=== PATIENT | male | born 1970 | race Caucasian/White ===

== ENCOUNTER → 2016-08-06 | Outpatient (CLI) | payer OTHER ==
--- NOTE | 2016-08-06 16:34 | US ---
EXAMINATION TYPE: US abdomen complete DATE OF EXAM: 08/06/2016 4:23 PM COMPARISON: NONE CLINICAL HISTORY: R94.5 Abnormal results of liver function studies. EXAM MEASUREMENTS: Liver Length: 11.6 cm Gallbladder Wall: 0.2 cm CBD: 0.4 cm Spleen: 12.3 cm Right Kidney: 10.5 x 5.8 x 5.6 cm Left Kidney: 11.8 x 5.7 x 5.7 cm Pancreas: not visualized due to midline bowel gas Liver: wnl Gallbladder: No stones seen Evidence for sonographic Hayes's sign: No CBD: wnl Spleen: wnl Right Kidney: No hydronephrosis or masses seen Left Kidney: No hydronephrosis or masses seen Upper IVC: wnl Abd Aorta: wnl The pancreas is obscured. Liver is normal in size without evidence of biliary dilatation. The gallbladder is normal without cholelithiasis. The gallbladder wall measures 2 mm. The distal comm on bile duct measures 4 mm. The spleen is normal in size. Both kidneys are normal. Visualized portions of the aorta and IVC are normal. IMPRESSION: NORMAL ABDOMINAL ULTRASOUND.
== END | disposition home or self-care (01) ==
LOC: RADUSMAIN 16:01
PROVIDERS: ATTEND Family Medicine
DX: R94.5 Abnormal results of liver function studies (principal)
CPT/HCPCS: 76700

== ENCOUNTER 2016-09-16 08:02 | Day surgery (SDC) | payer OTHER ==
[2016-09-14 08:42] VITALS: BMI 29.7
[~2016-09-16 08:02] MED LIST: LACTATED RINGERS 1,000 ML IV SCH; LIDOCAINE 1% 20 ML VIAL (10MG/ML) FOR IV START INTRADERMA PRN
[2016-09-16 08:20] VITALS: TEMP 98.1
[2016-09-16] MEDS ORDERED: PROPOFOL 10 MG/ML 20 ML VIAL IV ONE (09:10)
[2016-09-16 09:35] VITALS: RESP 18
--- NOTE | 2016-09-16 09:35 | P.PCN ---
Date of Procedure: 09/16/16 Preoperative Diagnosis: Postoperative Diagnosis: Procedure(s) Performed: Procedure: Total colonoscopy. Preoperative diagnosis: Screening for neoplasia, patient has family history of colon cancer in his dad. Postoperative diagnosis: Exam within normal limits. Preparation: HalfLytely prep. Sedation: Was provided by anesthesia. Brief clinical history: The patient is a 46-year-old male who is referred for this evaluation for screening for neoplasia because of family history of colon cancer in his father who was diagnosed as a young age. The patient had a prior colonoscopy at age 30 and that was a normal exam. He has no abdominal complaints, bleeding or anemia. Procedure: With the patient on his left lateral decubitus position and after informed consent and adequate sedation, the perianal area was inspected and it did not show any fissures or fistulas. There were no masses felt on digital rectal examination. The Olympus CFQ 160L was then inserted in the rectum in the usual fashion and advanced to the cecum. The preparation was good. The mucosa appeared healthy. No polyps or tumors were seen or any obvious diverticular disease or other pathology. I retroflexed the endoscope in the rectum before the endoscope was withdrawn. The patient tolerated the procedure well. Plan: The patient was reassured. He will follow-up with you as planned and I recommended a repeat exam in 10 years. Implants: Indications for Procedure: Operative Findings: Description of Procedure:
[2016-09-16 10:09] VITALS: BP 139/94; PULSE 56
== END 2016-09-16 10:20 | disposition home or self-care (01) ==
LOC: ORWHC2ENDO 08:02
DX: Z12.11 Encounter for screening for malignant neoplasm of colon (principal); Z80.0 Family history of malignant neoplasm of digestive organs; E78.5 Hyperlipidemia, unspecified
CPT/HCPCS: J2704; G0105; 45378

== ENCOUNTER 2017-04-18 20:37 | Emergency (ER) | payer OTHER ==
[2017-04-18] MEDS ORDERED: SODIUM CHLORIDE 0.9% 1,000 ML IV STA (20:54)
[2017-04-18 21:02] LABS: Basophils # (A) 0.1 k/uL (0-0.2); Basophils % (A) 1 %; Eosinophils # (A) 0.5 k/uL (0-0.7); Eosinophils % (A) 6 %; HCT 44.9 % (39.0-53.0); HGB 15.5 gm/dL (13.0-17.5); Lymphocytes # (A) 1.4 k/uL (1.0-4.8); Lymphocytes % (A) 17 %; MCHC 34.5 g/dL (31.0-37.0); MCV 92.7 fL (80.0-100.0); Monocytes # (A) 0.4 k/uL (0-1.0); Monocytes % (A) 5 %; Neutrophils # (A) 5.7 k/uL (1.3-7.7); Neutrophils % (A) 70 %; Platelet Count 289 k/uL (150-450); RBC 4.84 m/uL (4.30-5.90); WBC 8.1 k/uL (3.8-10.6)
[2017-04-18 21:12] LABS: ALT 92 U/L (21-72); AST 42 U/L (17-59); Albumin 4.6 g/dL (3.5-5.0); Alkaline Phosphatase 90 U/L (38-126); Anion Gap 13 mmol/L; Blood Urea Nitrogen 13 mg/dL (9-20); Calcium 9.9 mg/dL (8.4-10.2); Carbon Dioxide 28 mmol/L (22-30); Chloride 99 mmol/L (98-107); Glucose 134 mg/dL (74-99); Lipase 33 U/L (23-300); Magnesium 1.9 mg/dL (1.6-2.3); Sodium 140 mmol/L (137-145); Total Bilirubin 0.5 mg/dL (0.2-1.3); Total Protein 8.3 g/dL (6.3-8.2)
--- NOTE | 2017-04-18 21:15 | XR ---
EXAMINATION TYPE: XR chest 2V DATE OF EXAM: 04/18/2017 COMPARISON: NONE HISTORY: Chest pain TECHNIQUE: Frontal and lateral views of the chest are obtained. FINDINGS: Heart and mediastinum are normal. Lungs are clear. Costophrenic angles are clear. There ar e chest leads. Bony thorax is intact. IMPRESSION: Normal chest
--- NOTE | 2017-04-18 21:17 | ED ---
General Adult HPI - General Chief complaint: Chest Pain Stated complaint: chest pain Time Seen by Provider: 04/18/17 20:54 Source: patient, RN notes reviewed, old records reviewed Mode of arrival: ambulatory Limitations: no limitations - History of Present Illness Initial comments: This is a 38-year-old male the ER for evasive chest pain. Patient states he has right-sided chest pain. Patient has history of high blood pressure, patient states that the pain is, been dull,, going started this morning and has been right-sided. No significant shortness of breath occasional cough or congestion no fevers. No travel history no sick contacts. Patient has no modifying factors for pain - Related Data Home Medications Medication Instructions Recorded Confirmed Aspirin [Adult Low Dose Aspirin EC] 81 mg PO DAILY PRN 04/18/17 04/18/17 Loratadine-Pseudoeph 10-240 mg 1 tab PO DAILY PRN 04/18/17 04/18/17 [Claritin-D 24 Hr] Previous Rx's Medication Instructions Recorded Azithromycin [Zithromax Z-pack] 0 mg PO DIRECTED #1 pack 04/18/17 Allergies Allergy/AdvReac Type Severity Reaction Status Date / Time atorvastatin [From Lipitor] AdvReac MUSCLE Verified 04/18/17 20:55 ACHES Review of Systems ROS Statement: Those systems with pertinent positive or pertinent negative responses have been documented in the HPI. ROS Other: All systems not noted in ROS Statement are negative. Past Medical History Past Medical History: Hyperlipidemia Additional Past Medical History / Comment(s): "borderline high blood pressure", deteriorating disk, elevated liver enzymes, History of Any Multi-Drug Resistant Organisms: None Reported Additional Past Surgical History / Comment(s): oral surgery Past Anesthesia/Blood Transfusion Reactions: No Reported Reaction Past Psychological History: No Psychological Hx Reported Smoking Status: Never smoker Past Alcohol Use History: None Reported Past Drug Use History: None Reported - Past Family History Mother Family Medical History: Cancer Father Family Medical History: Cancer General Exam Limitations: no limitations General appearance: alert, in no apparent distress Head exam: Present: atraumatic, normocephalic, normal inspection Eye exam: Present: normal appearance, PERRL, EOMI. Absent: scleral icterus, conjunctival injection, periorbital swelling ENT exam: Present: normal exam, mucous membranes moist Neck exam: Present: normal inspection. Absent: tenderness, meningismus, lymphadenopathy Respiratory exam: Present: normal lung sounds bilaterally. Absent: respiratory distress, wheezes, rales, rhonchi, stridor Cardiovascular Exam: Present: regular rate, normal rhythm, normal heart sounds. Absent: systolic murmur, diastolic murmur, rubs, gallop, clicks GI/Abdominal exam: Present: soft, normal bowel sounds. Absent: distended, tenderness, guarding, rebound, rigid Extremities exam: Present: normal inspection, full ROM, normal capillary refill. Absent: tenderness, pedal edema, joint swelling, calf tenderness Back exam: Present: normal inspection Neurological exam: Present: alert, oriented X3, CN II-XII intact Psychiatric exam: Present: normal affect, normal mood Skin exam: Present: warm, dry, intact, normal color. Absent: rash Course Vital Signs 04/18/17 04/18/17 04/18/17 20:45 20:53 20:58 Temperature 98.5 F Pulse Rate 102 H 97 Pulse Rate [ 98 Crusher Assembler ] Respiratory 20 16 16 Rate Blood Pressure 199/115 167/99 O2 Sat by Pulse 97 98 Oximetry 04/19/17 00:13 Temperature 98.0 F Pulse Rate 78 Pulse Rate [ Crusher Assembler ] Respiratory 18 Rate Blood Pressure 138/89 O2 Sat by Pulse Oximetry - Reevaluation(s) Reevaluation #1: Patient has significant improvement pain, no chest pain no diaphoresis here in the emergency room, EKG Findings - EKG Comments: EKG Findings:: EKG shows sinus rhythm rate of 97, [place] 178, QRS 82, QTc 424 Medical Decision Making - Medical Decision Making 46 male the ER for evaluation, patient's found to have positive pneumonia. Patient be treated appropriately for pneumonia and can be discharged home - Lab Data Result diagrams: 04/18/17 20:45 04/18/17 20:45 Lab Results 04/18/17 04/18/17 04/18/17 Range/Units 20:45 20:45 20:45 WBC 8.1 (3.8-10.6) k/uL RBC 4.84 (4.30-5.90) m/uL Hgb 15.5 (13.0-17.5) gm/dL Hct 44.9 (39.0-53.0) % MCV 92.7 (80.0-100.0) fL MCH 32.0 (25.0-35.0) pg MCHC 34.5 (31.0-37.0) g/dL RDW 12.0 (11.5-15.5) % Plt Count 289 (150-450) k/uL Neutrophils % 70 % Lymphocytes % 17 % Monocytes % 5 % Eosinophils % 6 % Basophils % 1 % Neutrophils # 5.7 (1.3-7.7) k/uL Lymphocytes # 1.4 (1.0-4.8) k/uL Monocytes # 0.4 (0-1.0) k/uL Eosinophils # 0.5 (0-0.7) k/uL Basophils # 0.1 (0-0.2) k/uL PT (9.0-12.0) sec INR (<1.2) APTT (22.0-30.0) sec D-Dimer (<0.60) mg/L FEU Sodium 140 (137-145) mmol/L Potassium 4.0 (3.5-5.1) mmol/L Chloride 99 (98-107) mmol/L Carbon Dioxide 28 (22-30) mmol/L Anion Gap 13 mmol/L BUN 13 (9-20) mg/dL Creatinine 1.13 (0.66-1.25) mg/dL Est GFR (MDRD) Af Amer >60 (>60 ml/min/1.73 sqM) Est GFR (MDRD) Non-Af >60 (>60 ml/min/1.73 sqM) Glucose 134 H (74-99) mg/dL Calcium 9.9 (8.4-10.2) mg/dL Magnesium 1.9 (1.6-2.3) mg/dL Total Bilirubin 0.5 (0.2-1.3) mg/dL AST 42 (17-59) U/L ALT 92 H (21-72) U/L Alkaline Phosphatase 90 (38-126) U/L Total Creatine Kinase 114 (55-170) U/L CK-MB (CK-2) 0.9 (0.0-2.4) ng/mL CK-MB (CK-2) Rel Index 0.8 Troponin I <0.012 (0.000-0.034) ng/mL NT-Pro-B Natriuret Pep pg/mL Total Protein 8.3 H (6.3-8.2) g/dL Albumin 4.6 (3.5-5.0) g/dL Lipase 33 (23-300) U/L 04/18/17 04/18/17 Range/Units 20:45 20:45 WBC (3.8-10.6) k/uL RBC (4.30-5.90) m/uL Hgb (13.0-17.5) gm/dL Hct (39.0-53.0) % MCV (80.0-100.0) fL MCH (25.0-35.0) pg MCHC (31.0-37.0) g/dL RDW (11.5-15.5) % Plt Count (150-450) k/uL Neutrophils % % Lymphocytes % % Monocytes % % Eosinophils % % Basophils % % Neutrophils # (1.3-7.7) k/uL Lymphocytes # (1.0-4.8) k/uL Monocytes # (0-1.0) k/uL Eosinophils # (0-0.7) k/uL Basophils # (0-0.2) k/uL PT 10.1 (9.0-12.0) sec INR 1.0 (<1.2) APTT 24.0 (22.0-30.0) sec D-Dimer 0.28 (<0.60) mg/L FEU Sodium (137-145) mmol/L Potassium (3.5-5.1) mmol/L Chloride (98-107) mmol/L Carbon Dioxide (22-30) mmol/L Anion Gap mmol/L BUN (9-20) mg/dL Creatinine (0.66-1.25) mg/dL Est GFR (MDRD) Af Amer (>60 ml/min/1.73 sqM) Est GFR (MDRD) Non-Af (>60 ml/min/1.73 sqM) Glucose (74-99) mg/dL Calcium (8.4-10.2) mg/dL Magnesium (1.6-2.3) mg/dL Total Bilirubin (0.2-1.3) mg/dL AST (17-59) U/L ALT (21-72) U/L Alkaline Phosphatase (38-126) U/L Total Creatine Kinase (55-170) U/L CK-MB (CK-2) (0.0-2.4) ng/mL CK-MB (CK-2) Rel Index Troponin I (0.000-0.034) ng/mL NT-Pro-B Natriuret Pep 19 pg/mL Total Protein (6.3-8.2) g/dL Albumin (3.5-5.0) g/dL Lipase (23-300) U/L - Radiology Data Radiology results: report reviewed (Chest x-ray and CTA chest are negative for acute disease as far as PE, positive pneumonia), image reviewed Disposition Clinical Impression: Atypical chest pain, Hypertension, Community acquired pneumonia Disposition: HOME SELF-CARE Condition: Good Instructions: Chest Pain (ED), Community Acquired Pneumonia (ED), Hypertension (ED) Prescriptions: Azithromycin [Zithromax Z-pack] 0 mg PO DIRECTED #1 pack Referrals: Niyah Sarabia MD [Primary Care Provider] - 1-2 days
[2017-04-18] MEDS ORDERED: RX INFO: IV CONTRAST WAS GIVEN 1 EACH MISC MISCELLANE PRN (21:18)
[2017-04-18 21:21] LABS: Creatine Kinase 114 U/L (55-170)
[2017-04-18 21:26] LABS: D-Dimer 0.28 mg/L FEU (<0.60); Prothrombin Time 10.1 sec (9.0-12.0)
[2017-04-18 21:34] LABS: Creatine Kinase MB 0.9 ng/mL (0.0-2.4); Troponin I <0.012 ng/mL (0.000-0.034)
--- NOTE | 2017-04-18 22:28 | CT ---
EXAMINATION TYPE: CT angio chest DATE OF EXAM: 04/18/2017 10:21 PM COMPARISON: NONE HISTORY: Right sided chest pain today. CT DLP: 476.60 mGycm Automated exposure control for dose reduction was used. CONTRAST: CTA scan of the thorax is performed with IV Contrast, patient injected with 69 mL of Omnipaque 350, p ulmonary embolism protocol. There are 3-D post processed images.. FINDINGS: There is a minimal linear infiltrate in the anterior aspect of the superior segment of the right lowe r lobe. The other lung fernandez are clear. There is no evidence of a pulmonary mass. Heart size is norm al. There is no evidence of aortic aneurysm or dissection. I see no filling defects in the pulmonary arteries. There are no hilar masses. There is no mediastina l adenopathy. The bony thorax is intact. IMPRESSION: MINIMAL RIGHT LOWER LOBE PULMONARY INFILTRATE. NO EVIDENCE OF PULMONARY EMBOLISM.
[2017-04-18] MEDS ORDERED: AZITHROMYCIN 500 MG TAB PO STA (23:10)
[2017-04-18] MEDS ORDERED: LABETALOL 5 MG/ML VIAL MDV IVP STA (23:49)
[2017-04-19 00:14] VITALS: BP 138/89; PULSE 78; RESP 18; TEMP 98
== END 2017-04-19 00:14 | disposition home or self-care (01) ==
LOC: EC 20:37
DX: J18.9 Pneumonia, unspecified organism (principal); I10 Essential (primary) hypertension; Z88.8 Allergy status to other drugs, medicaments and biological substances
CPT/HCPCS: 99285; 96374; 96361; 36415; 93005; 85379; 83880; 80053; 82550; 82553; 83690; 83735; 84484; 85025; 85610; 85730; 71046; 71275; Q9967

== ENCOUNTER → 2024-03-12 | Outpatient (CLI) | payer OTHER ==
--- NOTE | 2024-03-12 12:21 | XR ---
EXAMINATION TYPE: XR cervical spine limited DATE OF EXAM: 03/12/2024 11:46 AM COMPARISON: None CLINICAL INDICATION: Male, 53 years old with history of M54.2 cervicalgia; H TECHNIQUE: XR cervical spine limited, (1-2) views of the cervical spine FINDINGS: Or The osseous structures show normal alignment without evidence of an acute fracture. There are osteoph ytes noted throughout the cervical spine on the anterior and lateral aspects of the vertebral bodies. The intervertebral disk spaces are narrowed at multiple levels Pedicles are intact. Soft tissues ar e within normal limits. The odontoid appears intact. IMPRESSION: 1. No fracture or dislocation. 2. Mild degenerative disc disease changes of the cervical spine. [facility], , 03/12/2024 12:19 PM
--- NOTE | 2024-03-12 12:23 | XR ---
EXAMINATION TYPE: XR thoracic spine complete DATE OF EXAM: 03/12/2024 11:46 AM COMPARISON: None CLINICAL INDICATION: Male, 53 years old with history of M54.6 thoracic spine pain; H TECHNIQUE: XR thoracic spine complete views of the spine in Frontal and lateral projections. FINDINGS: No evidence of acute fracture. There is scattered multilevel disk space narrowing without loss of ve rtebral body height. There is normal alignment of the thoracic vertebral bodies. Scattered osteophyte formation along the anterior and lateral aspects of the vertebral bodies. Neural foramen are patent given limitations of this exam. Spinal canal appears patent. IMPRESSION: 1. No acute osseous pathology. 2. [id number] multilevel degeneration changes of the spine. [facility], , 03/12/2024 12:20 PM
== END | disposition home or self-care (01) ==
LOC: RADXRMAIN 11:18
PROVIDERS: ATTEND Family Medicine
DX: M50.30 Other cervical disc degeneration, unspecified cervical region (principal); M47.816 Spondylosis without myelopathy or radiculopathy, lumbar region
CPT/HCPCS: 72040; 72072

== ENCOUNTER 2024-07-28 18:04 | Observation (INO) | payer OTHER ==
--- NOTE | 2024-07-28 18:29 | ED ---
General Adult HPI - General Chief complaint: Chest Pain Stated complaint: Chest pain Time Seen by Provider: 07/28/24 18:13 Source: patient, RN notes reviewed Mode of arrival: ambulatory Limitations: no limitations - History of Present Illness Initial comments: Patient is a 54-year-old male present to the emergency department with concerns with chest discomfort. Onset of symptoms was prior to arrival while doing yard work. Discomfort is rated 3-4/10. Discomfort was a little bit worse earlier. No associated dyspnea, nausea, or diaphoresis. No history of similar symptoms previously. No known history of previous cardiac disease. - Related Data Home Medications Medication Instructions Recorded Confirmed Loratadine [Claritin] 10 mg PO DAILY PRN 07/28/24 07/28/24 Multivitamins, Thera [Multivitamin 1 tab PO HS 07/28/24 07/28/24 (formulary)] Rosuvastatin Calcium [Crestor] 5 mg PO HS 07/28/24 07/28/24 amLODIPine [Norvasc] 5 mg PO HS 07/28/24 07/28/24 Allergies Allergy/AdvReac Type Severity Reaction Status Date / Time atorvastatin [From Lipitor] AdvReac MUSCLE Verified 07/28/24 20:03 ACHES Review of Systems ROS Statement: Those systems with pertinent positive or pertinent negative responses have been documented in the HPI. ROS Other: All systems not noted in ROS Statement are negative. Constitutional: Denies: fever Eyes: Denies: eye pain ENT: Denies: ear pain Respiratory: Denies: cough, dyspnea Cardiovascular: Reports: as per HPI, chest pain Endocrine: Denies: fatigue Gastrointestinal: Denies: abdominal pain Past Medical History Past Medical History: Hyperlipidemia Additional Past Medical History / Comment(s): "borderline high blood pressure", deteriorating disk, elevated liver enzymes, History of Any Multi-Drug Resistant Organisms: None Reported Additional Past Surgical History / Comment(s): oral surgery Past Anesthesia/Blood Transfusion Reactions: No Reported Reaction Past Psychological History: No Psychological Hx Reported Past Alcohol Use History: None Reported Past Drug Use History: None Reported - Past Family History Mother Family Medical History: Cancer Father Family Medical History: Cancer General Exam Limitations: no limitations General appearance: alert, in no apparent distress Head exam: Present: normocephalic Eye exam: Present: normal appearance Neck exam: Present: normal inspection Respiratory exam: Present: normal lung sounds bilaterally. Absent: chest wall tenderness Cardiovascular Exam: Present: regular rate, normal rhythm, normal heart sounds Expanded Peripheral pulses: 2+: Radial (R), Radial (L), Posterior Tibialis (R), Posterior Tibialis (L) GI/Abdominal exam: Present: soft. Absent: tenderness Extremities exam: Present: normal inspection. Absent: pedal edema, calf tenderness Neurological exam: Present: alert Psychiatric exam: Present: normal affect, normal mood Skin exam: Present: normal color Course Vital Signs 07/28/24 07/28/24 18:13 18:45 Temperature 98.1 F Pulse Rate 108 H 97 Respiratory 18 18 Rate Blood Pressure 150/101 157/95 O2 Sat by Pulse 98 99 Oximetry EKG Findings - EKG Results: EKG: interpreted by EDD (First-degree AV block with IA of 205.), sinus rhythm, normal axis, normal QRS, normal ST/T EKG shows: tachycardia Medical Decision Making - Medical Decision Making Was pt. sent in by a medical professional or institution (, PA, [employer]AT CANV[employer] INSTALLER, urgent care, hospital, or alf...) When possible be specific @ -No Did you speak to anyone other than the patient for history (EMS, parent, family, police, friend...)? What history was obtained from this source @ -No Did you review nursing and triage notes (agree or disagree)? Why? @ -I reviewed and agree with nursing and triage notes Were old charts reviewed (outside hosp., previous admission, EMS record, old EKG, old radiological studies, urgent care reports/EKG's, alf records)? Report findings @ -No old charts were reviewed Differential Diagnosis (chest pain, altered mental status, abdominal pain women, abdominal pain men, vaginal bleeding, weakness, fever, dyspnea, syncope, headache, dizziness, GI bleed, back pain, seizure, CVA, palpatations, mental health, musculoskeletal)? @ -Differential Chest Pain: Stable Angina, Unstable Angina, STEMI, NSTEMI Aortic Dissection, Pneumothorax, Musculoskeletal, Esophageal Spasm GERD, Cholecystitis, Pancreatitis, Zoster, this is not meant to be an all-inclusive list. EKG interpreted by me (3pts min.). @ -As above X-rays interpreted by me (1pt min.). @ -Chest x-ray shows no acute process CT interpreted by me (1pt min.). @ -None done U/S interpreted by me (1pt. min.). @ -None done What testing was considered but not performed or refused? (CT, X-rays, U/S, labs)? Why? @ -None What meds were considered but not given or refused? Why? @ -None Did you discuss the management of the patient with other professionals (professionals i.e. DrDerrick, PA, [employer]AT CANV[employer] INSTALLER, lab, RT, psych nurse, social worker assistant, chlorination operator, teacher, lead security officer, manager rn case)? Give summary @ -[facility] Dr. Quintana will admit covering Dr. Little Was smoking cessation discussed for >3mins.? @ -No Was critical care preformed (if so, how long)? @ -No Were there social determinants of health that impacted care today? How? (Homelessness, low income, unemployed, alcoholism, drug addiction, transport ation, low edu. Level, literacy, decrease access to med. care, assisted, rehab)? @ -No Was there de-escalation of care discussed even if they declined (Discuss DNR or withdrawal of care, Hospice)? DNR status @ -No What co-morbidities impacted this encounter? (DM, HTN, Smoking, COPD, CAD, Cancer, CVA, ARF, Chemo, Hep., AIDS, mental health diagnosis, sleep apnea, morbid obesity)? @ -Hypertension, hypercholesterolemia Was patient admitted / discharged? Hospital course, mention meds given and route, prescriptions, significant lab abnormalities, going to OR and other pertinent info. @ -Patient presents with chest discomfort following exertion doing yard work. Initial evaluation unremarkable. On reevaluation symptoms are improving however not resolved. Patient is updated on results and plan. Patient will be admitted with cardiac consult. Admission orders written. Undiagnosed new problem with uncertain prognosis? @ -No Drug Therapy requiring intensive monitoring for toxicity (Heparin, Nitro, Insulin, Cardizem)? @ -No Were any procedures done? @ -No Diagnosis/symptom? @ -Chest pain Acute, or Chronic, or Acute on Chronic? @ -Acute Uncomplicated (without systemic symptoms) or Complicated (systemic symptoms)? @ -Default Side effects of treatment? @ -No Exacerbation, Progression, or Severe Exacerbation? @ -No Poses a threat to life or bodily function? How? (Chest pain, [place], [place], pneumonia, PE, COPD, DKA, ARF, appy, cholecystitis, CVA, Diverticulitis, Homicidal, Suicidal, threat to staff... and all critical care pts) @ -Threat to cardiac function - Lab Data Result diagrams: 07/28/24 18:35 07/28/24 18:35 Lab Results 07/28/24 07/28/24 07/28/24 Range/Units 18:35 18:35 18:35 WBC 6.34 (4.50-10.00) 10*3/uL RBC 4.41 (4.40-5.60) 10*6/uL Hgb 14.9 (13.0-17.0) g/dL Hct 40.2 (39.6-50.0) % MCV 91.2 (80.0-97.0) fL MCH 33.8 H (27.0-32.0) pg MCHC 37.1 H (32.0-37.0) g/dL Plt Count 291 (140-440) 10*3/uL MPV 9.8 (9.5-12.2) fL Immature Gran % (Auto) 0.3 % Neutrophils % 67.7 % Lymphocytes % 21.9 % Monocytes % 7.1 % Eosinophils % 2.2 % Basophils % 0.8 % Immature Gran # 0.02 (0.00-0.04) 10*3/uL Neutrophils # 4.29 (1.80-7.70) 10*3/uL Lymphocytes # 1.39 (0.90-5.00) 10*3/uL Monocytes # 0.45 (0.20-1.00) 10*3/uL Eosinophils # 0.14 (0.04-0.35) 10*3/uL Basophils # 0.05 (0.00-0.10) 10*3/uL PT 11.1 (10.0-12.5) sec INR 1.0 (<1.2) APTT 24.3 (22.0-30.0) sec D-Dimer <0.17 (<0.60) mg/L FEU Sodium 137 (137-145) mmol/L Potassium 3.9 (3.5-5.1) mmol/L Chloride 100 (98-107) mmol/L Carbon Dioxide 26 (22-30) mmol/L Anion Gap 11 mmol/L BUN 15 (9-20) mg/dL Creatinine 1.21 (0.66-1.25) mg/dL Est GFR (CKD-EPI)AfAm 77 (>60 ml/min/1.73 sqM) Est GFR (CKD-EPI)NonAf 67 (>60 ml/min/1.73 sqM) Glucose 122 H (74-99) mg/dL Calcium 9.8 (8.4-10.2) mg/dL Magnesium 2.1 (1.6-2.3) mg/dL Total Bilirubin 0.6 (0.2-1.3) mg/dL AST 34 (17-59) U/L ALT 40 (4-49) U/L Alkaline Phosphatase 69 (38-126) U/L Troponin I (0.000-0.034) ng/mL Total Protein 7.8 (6.3-8.2) g/dL Albumin 4.7 (3.5-5.0) g/dL / Range/Units 18:35 WBC (4.50-10.00) 10*3/uL RBC (4.40-5.60) 10*6/uL Hgb (13.0-17.0) g/dL Hct (39.6-50.0) % MCV (80.0-97.0) fL MCH (27.0-32.0) pg MCHC (32.0-37.0) g/dL Plt Count (140-440) 10*3/uL MPV (9.5-12.2) fL Immature Gran % (Auto) % Neutrophils % % Lymphocytes % % Monocytes % % Eosinophils % % Basophils % % Immature Gran # (0.00-0.04) 10*3/uL Neutrophils # (1.80-7.70) 10*3/uL Lymphocytes # (0.90-5.00) 10*3/uL Monocytes # (0.20-1.00) 10*3/uL Eosinophils # (0.04-0.35) 10*3/uL Basophils # (0.00-0.10) 10*3/uL PT (10.0-12.5) sec INR (<1.2) APTT (22.0-30.0) sec D-Dimer (<0.60) mg/L FEU Sodium (137-145) mmol/L Potassium (3.5-5.1) mmol/L Chloride (98-107) mmol/L Carbon Dioxide (22-30) mmol/L Anion Gap mmol/L BUN (9-20) mg/dL Creatinine (0.66-1.25) mg/dL Est GFR (CKD-EPI)AfAm (>60 ml/min/1.73 sqM) Est GFR (CKD-EPI)NonAf (>60 ml/min/1.73 sqM) Glucose (74-99) mg/dL Calcium (8.4-10.2) mg/dL Magnesium (1.6-2.3) mg/dL Total Bilirubin (0.2-1.3) mg/dL AST (17-59) U/L ALT (4-49) U/L Alkaline Phosphatase (38-126) U/L Troponin I <0.012 (0.000-0.034) ng/mL Total Protein (6.3-8.2) g/dL Albumin (3.5-5.0) g/dL Disposition Clinical Impression: Chest pain Disposition: ADMITTED IP TO THIS HOSP Is patient prescribed a controlled substance at d/c from ED?: No Referrals: Niyah Sarabia MD [Primary Care Provider] - 1-2 days Time of Disposition: 20:09
[2024-07-28] MEDS: ASPIRIN 81 MG PO STA (18:43)
[2024-07-28] MEDS: NITROGLYCERIN OINT 1 INCH/GM PACKET TOPICAL STA (18:44)
[2024-07-28 18:46] LABS: Basophils # (A) 0.05 10*3/uL (0.00-0.10); Basophils % (A) 0.8 %; Eosinophils # (A) 0.14 10*3/uL (0.04-0.35); Eosinophils % (A) 2.2 %; HCT 40.2 % (39.6-50.0); HGB 14.9 g/dL (13.0-17.0); Lymphocytes # (A) 1.39 10*3/uL (0.90-5.00); Lymphocytes % (A) 21.9 %; MCH 33.8 pg (27.0-32.0); MCHC 37.1 g/dL (32.0-37.0); MCV 91.2 fL (80.0-97.0); Mean Platelet Volume 9.8 fL (9.5-12.2); Monocytes # (A) 0.45 10*3/uL (0.20-1.00); Monocytes % (A) 7.1 %; Neutrophils # (A) 4.29 10*3/uL (1.80-7.70); Neutrophils % (A) 67.7 %; Platelet Count 291 10*3/uL (140-440); RBC 4.41 10*6/uL (4.40-5.60); RDW 11.9 % (11.5-14.5); WBC 6.34 10*3/uL (4.50-10.00)
[2024-07-28 18:54] LABS: ALT 40 U/L (4-49); AST 34 U/L (17-59); African American GFR (CKD) 77 (>60 ml/min/1.73 sqM); Albumin 4.7 g/dL (3.5-5.0); Alkaline Phosphatase 69 U/L (38-126); Anion Gap 11 mmol/L; Blood Urea Nitrogen 15 mg/dL (9-20); Calcium 9.8 mg/dL (8.4-10.2); Carbon Dioxide 26 mmol/L (22-30); Chloride 100 mmol/L (98-107); Glucose 122 mg/dL (74-99); Magnesium 2.1 mg/dL (1.6-2.3); Non-African American GFR(CKD) 67 (>60 ml/min/1.73 sqM); Potassium 3.9 mmol/L (3.5-5.1); Sodium 137 mmol/L (137-145); Total Bilirubin 0.6 mg/dL (0.2-1.3); Total Protein 7.8 g/dL (6.3-8.2)
[2024-07-28 19:05] LABS: Partial Thromboplastin Time 24.3 sec (22.0-30.0); Prothrombin Time 11.1 sec (10.0-12.5)
--- NOTE | 2024-07-28 19:11 | XR ---
EXAMINATION TYPE: XR chest 2V DATE OF EXAM: 07/28/2024 6:41 PM COMPARISON: Chest radiographs from 04/18/2017. CLINICAL INDICATION: Male, 54 years old with history of Chest Pain; TECHNIQUE: XR chest 2V Frontal and lateral views of the chest. FINDINGS: Lungs/Pleura: There is no evidence of pleural effusion, focal consolidation, or pneumothorax. Pulmonary vascularity: Unremarkable. Heart/mediastinum: Cardiomediastinal silhouette is unremarkable. Musculoskeletal: No acute osseous pathology. IMPRESSION: No acute cardiopulmonary disease/process. [facility], , 07/28/2024 7:08 PM
[2024-07-28] MEDS ORDERED: NITROGLYCERIN SL TABS 0.4 MG TAB SUBLINGUAL PRN (20:09)
[2024-07-28] MEDS ORDERED: LORATADINE 10 MG TAB PO PRN (20:10)
[2024-07-28] MEDS: MULTIVITAMINS, THERA 1 EACH TAB PO SCH (20:54)
[2024-07-28] MEDS: amLODIPine 5 MG TAB PO SCH (20:55)
[2024-07-28] MEDS: ROSUVASTATIN CALCIUM 5 MG PO SCH (20:56)
[2024-07-28] MEDS: NITROGLYCERIN OINT 1 INCH/GM PACKET TOPICAL SCH (23:25)
[2024-07-29] MEDS: ASPIRIN 325 MG TAB PO SCH (08:27)
--- NOTE | 2024-07-29 11:24 | P.HPIM ---
History of Present Illness This is a pleasant 54 years old male with past medical history of hypertension and hyperlipidemia presents because of chest pain of 1 day duration started yesterday about 4-5/10 in severity currently completely resolved as per patient has 0/10. It was in the middle nonradiating with no known precipitating or relieving factors felt like pressure. Patient denies dyspnea or coughing. No specific GI/ symptom. No neurological symptoms. He denies smoking alcohol or illicit drugs. Patient hemodynamic stable afebrile Unremarkable labs CBC, BMP LFT. Troponin x 3 are negative less than 0.012. D-dimer negative less than 0.17. Chest x-ray showing no acute cardiopulmonary process. EKG showing sinus tachycardia at [address]-T changes Review of Systems Review of systems CONSTITUTIONAL: No fever, no malaise, no fatigue. HEENT: No recent visual problems or hearing problems. Denied any sore throat. CARDIOVASCULAR: No orthopnea, PND, no palpitations, no syncope. PULMONARY: No shortness of breath, no cough, no hemoptysis. GASTROINTESTINAL: No diarrhea, no nausea, no vomiting, no abdominal pain. Normoactive bowel sounds. NEUROLOGICAL: No headaches, no weakness, no numbness. HEMATOLOGICAL: Denies any bleeding or petechiae. GENITOURINARY: Denies any burning micturition, frequency, or urgency. MUSCULOSKELETAL/RHEUMATOLOGICAL: Denies any joint pain, swelling, or any muscle pain. ENDOCRINE: Denies any polyuria or polydipsia. Past Medical History Past Medical History: Hyperlipidemia Additional Past Medical History / Comment(s): "borderline high blood pressure", deteriorating disk, elevated liver enzymes, History of Any Multi-Drug Resistant Organisms: None Reported Additional Past Surgical History / Comment(s): oral surgery Past Anesthesia/Blood Transfusion Reactions: No Reported Reaction Past Psychological History: No Psychological Hx Reported Past Alcohol Use History: None Reported Past Drug Use History: None Reported - Past Family History Mother Family Medical History: Cancer Father Family Medical History: Cancer Medications and Allergies Home Medications Medication Instructions Recorded Confirmed Type Loratadine [Claritin] 10 mg PO DAILY PRN 07/28/24 07/28/24 History Multivitamins, Thera [Multivitamin 1 tab PO HS 07/28/24 07/28/24 History (formulary)] Rosuvastatin Calcium [Crestor] 5 mg PO HS 07/28/24 07/28/24 History amLODIPine [Norvasc] 5 mg PO HS 07/28/24 07/28/24 History Allergies Allergy/AdvReac Type Severity Reaction Status Date / Time atorvastatin [From Lipitor] AdvReac MUSCLE Verified 07/28/24 20:03 ACHES Physical Exam Vitals: Vital Signs Temp Pulse Resp BP Pulse Ox 07/29/24 10:52 75 16 139/95 99 07/29/24 08:30 98 F 75 16 150/95 99 07/29/24 06:25 63 18 130/86 98 07/29/24 01:54 97.8 F 76 18 113/76 100 07/28/24 20:56 92 18 130/96 98 07/28/24 18:45 97 18 157/95 99 07/28/24 18:13 98.1 F 108 H 18 150/101 98 Intake and Output 07/28/24 07/29/24 07/29/24 22:59 06:59 14:59 Other: Weight 97.522 kg GENERAL: The patient is alert and oriented x3, not in any acute distress. Well developed, well nourished. HEENT: Pupils are round and equally reacting to light. EOMI. No scleral icterus. No conjunctival pallor. Normocephalic, atraumatic. No pharyngeal erythema. No thyromegaly. CARDIOVASCULAR: S1 and S2 present. No murmurs, rubs, or gallops. PULMONARY: Chest is clear to auscultation, no wheezing , no crackles. ABDOMEN: Soft, nontender, nondistended, normoactive bowel sounds. No palpable organomegaly. MUSCULOSKELETAL: No joint swelling or deformity. EXTREMITIES: No cyanosis, clubbing, or pedal edema. NEUROLOGICAL: Gross neurological examination did not reveal any focal deficits. SKIN: No rashes. no petechiae. Results CBC & Chem 7: 07/28/24 18:35 07/28/24 18:35 Labs: Abnormal Lab Results - Last 24 Hours (Table) 07/28/24 07/28/24 Range/Units 18:35 18:35 MCH 33.8 H (27.0-32.0) pg MCHC 37.1 H (32.0-37.0) g/dL Glucose 122 H (74-99) mg/dL Assessment and Plan Assessment: Chest pain could be musculoskeletal, completely resolved. Rule out cardiac causes. D-dimer negative less than 0.017. Hypertension Hyperlipidemia Plan: Cardiology consult Continue with aspirin Further recommendation based on the clinical course GI and DVT prophylaxis
[2024-07-29 15:30] LABS: Chol/HDL Ratio 4.54 Ratio; LDL Cholesterol,Calculated 100.7 mg/dL (0.0-131.0)
--- NOTE | 2024-07-29 16:59 | P.CRDCN ---
History of Present Illness Consult date: 07/29/24 History of present illness: HISTORY OF PRESENTING ILLNESS: Patient is a 54-year-old male with past medical history of hypertension and dyslipidemia presented to the hospital because of substernal chest pressure that started a day prior coming to the hospital. This pain is nonradiating, no associated lightheadedness nausea vomiting diarrhea. No associated shortness of breath or palpitations. No associated syncopal episode. Chest pain was on and off lasted for few minutes and then resolved. No particular relationship with activity or rest or changing in position. Admission Vitals: 151/97 Admission Labs: Hb 14.9 BUN 15 creatinine 1.2, troponins were negative, TG 245, LDL 100, Admission EKG: Normal sinus rhythm with no significant ST-T wave changes concerning for ischemia Imaging: Chest x-ray did not show any acute cardiopulmonary process REVIEW OF SYSTEMS: 14 point review of system is negative except what is mentioned above in HPI. PHYSICAL EXAMINATION: Neck: Brisk carotid upstroke, no jugular venous distention. Lungs: Clear to auscultation. Heart: Regular rate and rhythm, S1-S2, , no murmur or rub. Abdomen: Soft nontender, positive bowel sounds. Extremities: No edema, intact distal pulses. Neuro: Alert, oritented, no focal deficits. Detailed neuro exam was not performed. ASSESSMENT: # Atypical chest pain, rule out of ACS # Essential hypertension # Dyslipidemia PLAN: Obtain echocardiogram Obtain treadmill echo stress test Obtain TSH, NT-proBNP A1c and ESR and CRP levels He is on amlodipine 5 mg, rosuvastatin 5 mg daily, will continue Gaudencio Stock MD, FACC, RPVI Thank you for allowing [facility] to participate in this patient's care. Feel free to reach out in case of any followup questions. Past Medical History Past Medical History: Hyperlipidemia Additional Past Medical History / Comment(s): "borderline high blood pressure", deteriorating disk, elevated liver enzymes, History of Any Multi-Drug Resistant Organisms: None Reported Additional Past Surgical History / Comment(s): oral surgery Past Anesthesia/Blood Transfusion Reactions: No Reported Reaction Past Psychological History: No Psychological Hx Reported Past Alcohol Use History: None Reported Past Drug Use History: None Reported - Past Family History Mother Family Medical History: Cancer Father Family Medical History: Cancer Medications and Allergies Home Medications Medication Instructions Recorded Confirmed Type Loratadine [Claritin] 10 mg PO DAILY PRN 07/28/24 07/28/24 History Multivitamins, Thera [Multivitamin 1 tab PO HS 07/28/24 07/28/24 History (formulary)] Rosuvastatin Calcium [Crestor] 5 mg PO HS 07/28/24 07/28/24 History amLODIPine [Norvasc] 5 mg PO HS 07/28/24 07/28/24 History Allergies Allergy/AdvReac Type Severity Reaction Status Date / Time atorvastatin [From Lipitor] AdvReac MUSCLE Verified 07/28/24 20:03 ACHES Physical Exam Vitals: Vital Signs Temp Pulse Resp BP Pulse Ox 07/29/24 15:09 83 18 151/97 97 07/29/24 10:52 75 16 139/95 99 07/29/24 08:30 98 F 75 16 150/95 99 07/29/24 06:25 63 18 130/86 98 07/29/24 01:54 97.8 F 76 18 113/76 100 07/28/24 20:56 92 18 130/96 98 07/28/24 18:45 97 18 157/95 99 07/28/24 18:13 98.1 F 108 H 18 150/101 98 Results 07/28/24 18:35 07/28/24 18:35 Cardiac Enzymes 07/28/24 07/28/24 07/28/24 Range/Units 18:35 18:35 21:49 AST 34 (17-59) U/L Troponin I <0.012 <0.012 (0.000-0.034) ng/mL 07/29/24 Range/Units 01:00 AST (17-59) U/L Troponin I <0.012 (0.000-0.034) ng/mL Coagulation 07/28/24 Range/Units 18:35 PT 11.1 (10.0-12.5) sec APTT 24.3 (22.0-30.0) sec Lipids 07/28/24 Range/Units 18:35 Triglycerides 245.00 H (0.00-149.00) mg/dL Cholesterol 192.00 (0.00-200.00) mg/dL HDL Cholesterol 42.30 (40.00-60.00) mg/dL Cholesterol/HDL Ratio 4.54 Ratio CBC 07/28/24 Range/Units 18:35 WBC 6.34 (4.50-10.00) 10*3/uL RBC 4.41 (4.40-5.60) 10*6/uL Hgb 14.9 (13.0-17.0) g/dL Hct 40.2 (39.6-50.0) % Plt Count 291 (140-440) 10*3/uL Comprehensive Metabolic Panel 07/28/24 Range/Units 18:35 Sodium 137 (137-145) mmol/L Potassium 3.9 (3.5-5.1) mmol/L Chloride 100 (98-107) mmol/L Carbon Dioxide 26 (22-30) mmol/L BUN 15 (9-20) mg/dL Creatinine 1.21 (0.66-1.25) mg/dL Glucose 122 H (74-99) mg/dL Calcium 9.8 (8.4-10.2) mg/dL AST 34 (17-59) U/L ALT 40 (4-49) U/L Alkaline Phosphatase 69 (38-126) U/L Total Protein 7.8 (6.3-8.2) g/dL Albumin 4.7 (3.5-5.0) g/dL Current Medications Generic Name Dose Route Start Last Admin Trade Name Freq PRN Reason Stop Dose Admin Amlodipine Besylate 5 mg 07/28/24 21:00 07/28/24 20:55 Amlodipine 5 Mg Tab PO 5 mg HS TRISHA Administration Aspirin 325 mg 07/29/24 09:00 07/29/24 08:27 Aspirin 325 Mg Tab PO 325 mg DAILY TRISHA Administration Famotidine 20 mg 07/29/24 21:00 Famotidine 20 Mg/2 Ml Vial IV Q12HR TRISHA Heparin Sodium (Porcine) 5,000 unit 07/29/24 21:00 Heparin Sodium,Porcine 5,000 Unit/Ml 1 Ml Vial SQ Q12HR TRISHA Loratadine 10 mg 07/28/24 20:10 Loratadine 10 Mg Tab PO DAILY PRN Allergy Symptoms Multivitamins 1 each 07/28/24 21:00 07/28/24 20:54 Multivitamins, Thera 1 Each Tab PO 1 each HS TRISHA Administration Nitroglycerin 0.4 mg 07/28/24 20:09 Nitroglycerin Sl Tabs 0.4 Mg Tab SUBLINGUAL Q5M PRN Chest Pain Nitroglycerin 1 inch 07/29/24 00:00 07/29/24 11:45 Nitroglycerin Oint 1 Inch/Gm Packet TOPICAL Not Given Q6HR [facility] Rosuvastatin Calcium 1 each 07/28/24 21:00 07/28/24 20:56 [Crestor] 5 Mg PO 1 each Tablet HS TRISHA Administration 07/28/24 18:35 07/28/24 18:35
[2024-07-29 19:49] LABS: C Reactive Protein <0.5 mg/dL (<1.0)
[2024-07-29 19:52] LABS: NT-Pro-B-Type Natriuretic Pept <20 pg/mL
[2024-07-29] MEDS: HEPARIN SODIUM,PORCINE 5,000 UNIT/ML 1 ML VIAL SQ SCH (20:23)
[2024-07-29] MEDS: FAMOTIDINE 20 MG/2 ML VIAL IV SCH (20:24)
[2024-07-30 08:24] VITALS: BP 131/81; PULSE 78; RESP 16; TEMP 97.6
--- NOTE | 2024-07-30 14:16 | CA ---
Stress Echo Report Umang Olivas Age: 54 Gender: M : 1970 Exam Date: 07/30/2024 12:27 Exam Location: [place] [facility] Ht (in): 73 Wt (lb): 215 Ordering Physician: Gaudencio Stock MD ([email or web address]) Referring Physician: ALONZO, [employer] Player: HAIR Technologist Procedure CPT: Indication: angina pectoris ICD-9 Codes: Rhythm: Patient History: Cardiac Medications: see chart Medications in past 24 hours: Contrast: N/A Stress Results Protocol: Elder Total dose(mL): NA Exercise Duration (min:sec): 9:[address] Depression (mm): Angina Score: Fuentes Score: METS: 10.5 Resting HR: 111 Resting BP: 146 / 100 Peak HR: 157 Peak BP: 143 / 77 Max Predicted HR: 164 96 % Max Predicted HR Target HR: 139 Double Product: [id number] Stress Summary: BP Response: Reason for Termination: Reached target heart rate or work-load Cardiac Symptoms: No Symptoms ECG Analysis Resting ECG: Stress ECG: Arrhythmia: Echo Analysis Resting Echo: Peak Echo Analysis: MEASUREMENTS (Male/Female) Normal Values CONCLUSIONS Patient underwent exercise stress echo with a Elder protocol treadmill stress test. Patient exercised into Stage 3 for a total of 9 minutes and 10 seconds reaching a total of 10.5 METS. Patient's maximum heart rate was 157 which represented 95% age- predicted maximum heart rate. Stress EKG portion: At baseline patient's EKG showed normal sinus rhythm, normal axis, borderline J-point elevation in the inferior leads with no significant ST or T wave abnormalities. At peak exercise, EKG showed no change from baseline. Stress echo portion: 2-D echocardiogram was performed in the parasternal long, personal short, apical 2 and apical four-chamber views at rest, peak exercise and in recovery. At baseline, echocardiogram showed left ventricular ejection fraction 55% without wall motion abnormalities. With peak exercise, echocardiogram shows improvement in left ventricular ejection fraction, increase contractility, decrease in left ventricular end systolic dimension without wall motion abnormalities consistent with a normal response to exercise. Conclusions: 1. Normal EKG and echo response to exercise without evidence of inducible ischemia. 2. Good exercise capacity. Dr. Thom Mccauley DO (Electronically Signed) Final Date: 30 July 2024 14:15
--- NOTE | 2024-07-30 14:17 | CA ---
Transthoracic Echo Report Name: Umang Olivas Age: 54 Gender: M : 1970 Exam Date: 07/30/2024 12:44 Exam Location: [place] [facility] Ht (in): 73 Wt (lb): 215 Ordering Physician: Gaudencio Stock MD ([email or web address]) Attending/Referring Phys: Healthcare Science Specialist Ivory Covington RDCS Procedure CPT: Indications: angina pectoris Cardiac Hx: Technical Quality: Good Contrast 1: Total Dose (mL): Contrast 2: Total Dose (mL): MEASUREMENTS (Male / Female) Normal Values 2D ECHO LV Diastolic Diameter PLAX 4.9 cm 4.2 - 5.9 / 3.9 - 5.3 cm LV Systolic Diameter PLAX 3.6 cm IVS Diastolic Thickness 0.8 cm 0.6 - 1.0 / 0.6 - 0.9 cm LVPW Diastolic Thickness 1.1 cm 0.6 - 1.0 / 0.6 - 0.9 cm LV Relative Wall Thickness 0.4 LVOT Diameter 2.2 cm Aortic Root Diameter 3.2 cm LV Diastolic Volume MOD BP 113.9 cm??? 67 - 155 / 56 - 104 cm??? LV Systolic Volume MOD BP 45.4 cm??? 22 - 58 / 19 - 49 cm??? LV Ejection Fraction MOD BP 60.1 % >= 55 % LV Cardiac Index MOD BP 2850.0 cm???/min???m??? LV Diastolic Volume MOD 4C 118.8 cm??? LV Systolic Volume MOD 4C 40.7 cm??? LV Ejection Fraction MOD 4C 65.7 % LV Cardiac Index MOD 4C 3250.4 cm???/min???m??? LV Diastolic Length 4C 9.2 cm LV Systolic Length 4C 7.7 cm LV Diastolic Volume MOD 2C 99.7 cm??? LV Systolic Volume MOD 2C 45.4 cm??? LV Ejection Fraction MOD 2C 54.5 % LV Cardiac Index MOD 2C 2260.6 cm???/min???m??? LV Diastolic Length 2C 8.4 cm LV Systolic Length 2C 6.9 cm Ascending Aorta Diameter 3.2 cm DOPPLER AV Peak Velocity 156.1 cm/s AV Peak Gradient 9.8 mmHg AV Mean Velocity 111.8 cm/s AV Mean Gradient 5.6 mmHg AV Velocity Time Integral 26.0 cm LVOT Peak Velocity 114.7 cm/s LVOT Peak Gradient 5.3 mmHg LVOT Velocity Time Integral 18.0 cm LVOT Stroke Volume 69.7 cm??? LVOT Stroke Volume Index 31.4 ml/m??? LVOT Cardiac Index 2901.2 cm???/min???m??? AV Area Cont Eq vti 2.7 cm??? AV Area Cont Eq pk 2.8 cm??? Mitral E Point Velocity 61.7 cm/s Mitral A Point Velocity 71.8 cm/s Mitral E to A Ratio 0.9 MV Deceleration Time 138.6 ms MV E' Velocity 5.4 cm/s Mitral E to MV E' Ratio 11.3 PV Peak Velocity 98.2 cm/s PV Peak Gradient 3.9 mmHg FINDINGS Left Ventricle Left ventricular ejection fraction is estimated at 60 %. Left ventricular cavity size normal. Left ventricular wall thickness normal. No obvious regional wall motion abnormalities. Right Ventricle Normal right ventricular size and function. Unable to estimate the right ventricular systolic pressure. Right Atrium Normal right atrial size. Left Atrium Normal left atrial size. Mitral Valve Structurally normal mitral valve. No mitral stenosis, regurgitation or prolapse. Aortic Valve Trileaflet aortic valve. No aortic valve stenosis or regurgitation. Tricuspid Valve Structurally normal tricuspid valve. No tricuspid stenosis. Trace tricuspid regurgitation. Pulmonic Valve Pulmonic valve not well visualized. No pulmonic stenosis. No pulmonic regurgitation. Pericardium No pericardial effusion. Aorta Normal size aortic root and proximal ascending aorta. CONCLUSIONS Left ventricular ejection fraction 55 to 60% No mitral regurgitation Trace tricuspid regurgitation No pericardial effusion Previewed by: Dr. Thom Mccauley DO (Electronically Signed) Final Date: 30 July 2024 14:16
[2024-07-30] MEDS ORDERED: FAMOTIDINE 20 MG TAB PO SCH (21:00)
--- NOTE | 2024-07-30 21:57 | P.DS ---
Providers Date of admission: 07/28/24 20:09 Attending physician: Wei Quintana MD Consults: 07/28/24 20:09 Consult Physician Urgent Consulting Provider: Nawaf Berg Consult Reason/Comments: cp Do you want consulting provider notified?: Yes Primary care physician: Niyah Sarabia Hospital Course: Diagnoses: Chest pain mostly e musculoskeletal, completely resolved. cardiac causes ruled out. D-dimer negative less than 0.017. Hypertension Hyperlipidemia Hospital course: This is a pleasant 54 years old male with past medical history of hypertension and hyperlipidemia presents because of chest pain of 1 day duration started yesterday about 4-5/10 in severity currently completely resolved as per patient has 0/10. D-dimer was negative Echocardiogram showed ejection fraction 60% Stress echo: Normal EKG and echo response without evidence of inducible ischemia Patient denies any other symptoms and he was cleared for discharge by insurance collector Problems and management plan were discussed with the patient and he verbalized understanding and acceptance Patient was found stable and can be discharged home in guarded prognosis however he needs follow-up as an outpatient. Patient was instructed to follow up with PCP within one week and patient agrees Patient is instructed to follow-up with insurance collector Dr. Mccauley in 2 weeks and he agrees Physical exam Gen: patient is a AAOx3, no distress CVS: S1-S2, RRR, no murmur Lungs: B/L CTA, no wheezing Abdomen: soft, no distention, no tenderness, positive bowel sounds Extremity: no leg edema or induration Time spent more than 35 minutes Plan - Discharge Summary New Discharge Prescriptions: Continue amLODIPine [Norvasc] 5 mg PO HS Rosuvastatin Calcium [Crestor] 5 mg PO HS Loratadine [Claritin] 10 mg PO DAILY PRN PRN Reason: Allergy Symptoms Multivitamins, Thera [Multivitamin (formulary)] 1 tab PO HS Discharge Medication List Loratadine [Claritin] 10 mg PO DAILY PRN 07/28/24 [History] Multivitamins, Thera [Multivitamin (formulary)] 1 tab PO HS 07/28/24 [History] Rosuvastatin Calcium [Crestor] 5 mg PO HS 07/28/24 [History] amLODIPine [Norvasc] 5 mg PO HS 07/28/24 [History] Follow up Appointment(s)/Referral(s): Niyah Sarabia MD [Primary Care Provider] - 1-2 days Thom Mccauley DO [STAFF PHYSICIAN] - 2 Weeks Patient Instructions/Handouts: Chest Pain (DC) Activity/Diet/Wound Care/Special Instructions: Heart healthy diet activity is restricted till you see your doctor Discharge Disposition: HOME SELF-CARE
== END 2024-07-30 15:31 | disposition home or self-care (01) ==
LOC: EC 18:04 → 6NMEDSUR 20:09
PROVIDERS: ADMIT Internal Medicine; ATTEND Internal Medicine
DX: R07.89 Other chest pain (principal); I10 Essential (primary) hypertension; I44.0 Atrioventricular block, first degree; R00.0 Tachycardia, unspecified; E78.00 Pure hypercholesterolemia, unspecified; Z79.899 Other long term (current) drug therapy; Z88.8 Allergy status to other drugs, medicaments and biological substances
CPT/HCPCS: 96372; 96374; 99285; 36415; 93005 ×2; 93306; 93351; 85379; 83880; 80061; 80053; 85652; 84443; 83735; 84484 ×2; 85025; 85610; 85730; 86140; 83036; 71046; G0378 ×3; J1644; J1308

== ENCOUNTER → 2024-09-17 | Outpatient (CLI) | payer OTHER ==
--- NOTE | 2024-09-17 08:32 | CT ---
EXAMINATION TYPE: CT heart w calcium score DATE OF EXAM: 09/17/2024 7:10 AM COMPARISON: None. CLINICAL INDICATION: Male, 54 years old with history of Z82.49 FAMILY HX OF ISCHEM HEART DIS AND OTH DIS O, FAMILY HISTORY HEART DISEASE TECHNIQUE - Prospective Gating was used. Slice thickness: 3mm. Density threshold (HU): 130, Pixel threshold: 3, Algorithm: discrete Contrast used: mL of , (none if empty) Oral contrast used: (none if empty) CT DLP: 94.2 mGycm, Automated exposure control for dose reduction was used. FINDINGS: CT CALCIUM SCORING Coronary calcium is a marker for plaque (fatty deposits) in a blood vessel or atherosclerosis (harden ing of the arteries). The presence and amount of calcium detected in a coronary artery by the CT sca n, indicates the presence and amount of atherosclerotic plaque. These calcium deposits appear years before the development of heart disease symptoms such as chest pain and shortness of breath. A calcium score is computed for each of the coronary arteries based upon the volume and density of th e calcium deposits. This can be referred to as your calcified plaque burden. It does not correspond directly to the percentage of narrowing in the artery but does correlate with the severity of the un derlying coronary atherosclerosis. RESULTS Region: LM Calcium Score ([place]): 116.13 Volume (mm3): 102.69 Mass (g): 34.23 Region: RCA Calcium Score ([place]): 37.36 Volume (mm3): 55.76 Mass (g): 18.59 Region: LAD Calcium Score ([place]): 18.22 Volume (mm3): 18.22 Mass (g): 6.07 Region: CX Calcium Score ([place]): 2.58 Volume (mm3): 3.86 Mass (g): 1.29 Region: PDA Calcium Score ([place]): 0 Volume (mm3): 0 Mass (g): 0 Total: Calcium Score ([place]): 174.29 Volume (mm3): 180.54 Mass (g): 60.18 TOTAL CALCIUM SCORE: 174.29 IMPRESSION: Calcium Score: 174 Implication: At least moderate atherosclerotic plaque present. Significant narrowing possible. Risk of Coronary Artery Disease: Mild to moderate risk for significant coronary artery disease. Consi arian additional cardiac workup. Impression: 1. Moderate atherosclerotic calcification with risk for significant coronary artery calcification. Co nsider additional cardiac workup. CALCIUM SCORE IMPLICATION RISK OF C ORONARY ARTERY DISEASE 0 No identifiable plaque Very low, generally less than 5% 1-10 Minimal identifiable plaque Very unlikely, less than 10% 11-100 Definite, at least mild atherosclerotic plaque Mild or m inimal coronary narrowings likely 101-400 Definite, at least moderate atherosclerotic plaque Mild coronary ar [place] disease highly likely, significant narrowing possible 401 or Higher Extensive atherosclerotic plaque High lik elihood of at least one significant coronary narrowing [facility], , 09/17/2024 8:29 AM
== END | disposition home or self-care (01) ==
LOC: RADCTMAIN 06:43
PROVIDERS: ATTEND Family Medicine
DX: I25.10 Atherosclerotic heart disease of native coronary artery without angina pectoris (principal); Z82.49 Family history of ischemic heart disease and other diseases of the circulatory system
CPT/HCPCS: 75571